=== PATIENT | female | born 1975 | race Caucasian/White ===

== ENCOUNTER 2017-12-08 19:28 | Emergency (ER) | payer BC ==
[~2017-12-08] VITALS: Ht 165.1 cm; Wt 56.7 kg
[2017-12-08 20:34] LABS: HEMATOCRIT 43 % (33-45); HEMOGLOBIN 14.2 g/dL (11.5-14.8); MEAN CORPUSCULAR HEMOGLOBIN 31 PG (26.0-33.0); MEAN CORPUSCULAR HGB CONC 33 g/dl (31.0-36.0); MEAN CORPUSCULAR VOLUME 94 fL (82-100); PLATELET COUNT (AUTO) 298 /CMM (150-450); RDW COEFFICIENT OF VARIATION 12.5 (11.5-15.0); RED BLOOD CELL COUNT(AUTO) 4.56 MIL/uL (4.0-5.2); WHITE BLOOD COUNT (AUTO) 6.5 K/uL (4.3-11.0)
[2017-12-08 20:48] LABS: CALCIUM, SERUM 9.9 mg/dL (8.5-10.1); CARBON DIOXIDE 26 mmol/L (21-32); CHLORIDE 104 mmol/L (98-107); GLUCOSE 115 mg/dL (74-106); POTASSIUM 3.5 mmol/L (3.5-5.1); SODIUM SERUM 138 mmol/L (136-145); UREA NITROGEN, BLOOD 11 mg/dL (7-18)
[2017-12-08 20:53] LABS: ALANINE AMINOTRANSFERASE 50 U/L (12-78); ALBUMIN 4.2 g/dL (3.4-5.0); ALCOHOL, BLOOD 226 mg/dL (0-0); ALKALINE PHOSPHATASE 99 U/L (46-116); ASPARTATE AMINOTRANSFERASE 22 U/L (15-37); BILIRUBIN,TOTAL 0.1 mg/dL (0.2-1.0); TOTAL PROTEIN, SERUM 7.9 g/dL (6.4-8.2)
[2017-12-08 20:54] LABS: SALICYLATE 1.7 mg/dL (2.8-20.0)
[2017-12-08 20:55] LABS: ACETAMINOPHEN < 2 ug/ml (10-30)
[2017-12-08] MEDS ORDERED: IBUPROFEN 600 MG TABLET PO ONE ×2 (21:30→21:49)
[2017-12-08 21:43] LABS: BAND % (MANUAL) 18 % (0.0-5.0); LYMPHOCYTES % (MANUAL) 15 % (16-48); MONOCYTES % (MANUAL) 7 % (0-11.0); NEUTROPHILS % (MANUAL) 60 (42-76)
[2017-12-08] MEDS ORDERED: ONDANSETRON 4 MG TAB.RAPDIS ONE (21:49)
[2017-12-08] MEDS ORDERED: ONDANSETRON 4 MG TAB.RAPDIS PO ONE (22:00)
[2017-12-08 22:25] LABS: APPEARANCE,URINE CLOUDY (CLEAR); BILIRUBIN,URINE NEGATIVE (NEGATIVE); BLOOD, URINE 3+ Ery/uL (NEGATIVE); COLOR,URINE RED (YELLOW); KETONES,URINE NEGATIVE (NEGATIVE); LEUKOCYTE ESTERASE ,URINE 1+ (NEGATIVE); NITRITE, URINE NEGATIVE (NEGATIVE); PROTEIN,URINE 1+ mg/dl (NEGATIVE); UGLUCOSE NEGATIVE (NEGATIVE); UROBILINOGEN,URINE 0.2 EU/dL (0.2)
[2017-12-08 22:36] LABS: BACTERIA,URINE None seen /HPF (None Seen); RBC,URINE TOO NUMEROUS TO COUN /HPF (0-2); SQUAMOUS EPITHELIAL CELL,UR Few /HPF (None Seen)
[2017-12-08 22:37] LABS: HYALINE CASTS, URINE Few /LPF (None Seen)
[2017-12-08] MEDS ORDERED: HALOPERIDOL LACTATE INJ 5 MG/ML VIAL ONE (22:37)
[2017-12-08] MEDS ORDERED: HALOPERIDOL LACTATE INJ 5 MG/ML VIAL IM ONE (23:00)
--- NOTE | 2017-12-08 23:45 | NUR ---
[facility] RO[address] FREIGHT CONDUCTOR AT BEDSIDE FOR EVAL .
[2017-12-09] MEDS ORDERED: CEPHALEXIN MONOHYDRATE 500 MG CAPSULE PO ONE ×2 (01:30→05:15)
--- NOTE | 2017-12-09 05:23 | NUR ---
PT OK TO DISCHARGE PER DR HARTMAN. Patient discharged to home in stable condition. Written and verbal after care instructions given. Patient verbalizes understanding of instruction.Patient is awake and alert to self, day, and place. PT ambulatory with a steady gait
[2017-12-09 05:25] VITALS: BP 120/79
== END 2017-12-09 05:25 | disposition home or self-care (01) ==
LOC: ER 19:30
DX: F10.129 Alcohol abuse with intoxication, unspecified (principal); R45.851 Suicidal ideations; M32.9 Systemic lupus erythematosus, unspecified; Z88.8 Allergy status to other drugs, medicaments and biological substances; Y90.7 Blood alcohol level of 200-239 mg/100 ml
CPT/HCPCS: 36415; 80048; 80076; 80305; 80329; 81001; 84703; 85025; 87086; 96372; 99284; A4606; G0480 ×2; J1630; Q0162; Z7610; 81000-TC

== ENCOUNTER 2021-03-30 09:30 | Emergency (ER) | payer BC, MEDICAID ==
[~2021-03-30] VITALS: Ht 162.6 cm; Wt 63.5 kg
[2021-03-30 09:43] VITALS: BP 149/95
--- NOTE | 2021-03-30 09:53 | NUR ---
SEEN AND EXMAINED BY .
[2021-03-30] MEDS ORDERED: GABA100C PO (09:56)
--- NOTE | 2021-03-30 10:09 | NUR ---
ER PHLEB AT BEDSIDE FOR BRUCE.
--- NOTE | 2021-03-30 10:15 | NUR ---
FIREARMS SPECIALIST AT BEDSIDE FOR XRAY.
--- NOTE | 2021-03-30 10:17 | NUR ---
Patient discharged to home in stable condition. Written and verbal after care instructions given. Patient verbalizes understanding of instruction.
[2021-03-30 10:24] LABS: BASOPHILS # (AUTO) 0.1 K/uL (0.0-0.2); BASOPHILS % (AUTO) 1.3 % (0.0-2.0); EOSINOPHILS % (AUTO) 1.3 % (0.0-6.0); HEMATOCRIT 35 % (33-45); HEMOGLOBIN 11.1 g/dL (11.5-14.8); LYMPHOCYTES # (AUTO) 1.8 K/uL (0.8-4.8); MEAN CORPUSCULAR HGB CONC 32 g/dl (31.0-36.0); MEAN CORPUSCULAR VOLUME 81 fL (82-100); MONOCYTES # (AUTO) 0.3 K/uL (0.1-1.30); MONOCYTES % (AUTO) 4.3 % (2.0-12.0); NEUTROPHILS # (AUTO) 5.4 K/uL (1.8-8.9); NEUTROPHILS % (AUTO) 70.1 % (43.0-81.0); PLATELET COUNT (AUTO) 325 K/uL (150-450); RED BLOOD CELL COUNT(AUTO) 4.26 MIL/uL (4.0-5.2); WHITE BLOOD COUNT (AUTO) 7.8 K/uL (4.3-11.0)
[2021-03-30 10:36] LABS: CALCIUM, SERUM 9.2 mg/dL (8.5-10.1); CARBON DIOXIDE 23 mmol/L (21-32); CHLORIDE 103 mmol/L (98-107); CREATININE 0.8 mg/dL (0.6-1.3); GLUCOSE 104 mg/dL (74-106); POTASSIUM 4.3 mmol/L (3.5-5.1); SODIUM SERUM 136 mmol/L (136-145); UREA NITROGEN, BLOOD 12 mg/dL (7-18)
[2021-03-30 10:40] LABS: CREATINE KINASE, TOTAL 111 U/L (26-192)
[2021-03-30 10:46] LABS: ALANINE AMINOTRANSFERASE 20 U/L (12-78); ALBUMIN 4.1 g/dL (3.4-5.0); ALKALINE PHOSPHATASE 92 U/L (46-116); ASPARTATE AMINOTRANSFERASE 15 U/L (15-37); BILIRUBIN,TOTAL 0.2 mg/dL (0.2-1.0); TOTAL PROTEIN, SERUM 7.7 g/dL (6.4-8.2)
[2021-03-30 10:47] LABS: C-REACTIVE PROTEIN < 0.2 mg/dL (0.0-0.9)
[2021-03-31 06:06] LABS: *ANA ANTI-CENTROMERE B AB <0.2 AI (0.0-0.9); *ANA ANTI-DNA(DS) AB, QN 1 IU/mL (0-9); *ANA ANTI-JO-1 <0.2 AI (0.0-0.9); *ANA ANTICHROMATIN ANTIBODY <0.2 AI (0.0-0.9); *ANA RNP ANTIBODIES 0.2 AI (0.0-0.9); *ANA SJOGREN'S ANTI-SS-A <0.2 AI (0.0-0.9); *ANA SJOGREN'S ANTI-SS-B <0.2 AI (0.0-0.9); *ANAANTI-SCLERODERMA-70 AB <0.2 AI (0.0-0.9); *ANASMITH AB <0.2 AI (0.0-0.9)
[2021-03-31 08:07] LABS: COMPLEMENT C3, SERUM 116 mg/dL (82-167); COMPLEMENT C4, SERUM 21 mg/dL (12-38)
== END 2021-03-30 10:19 | disposition home or self-care (01) ==
LOC: ER 09:40
DX: G62.9 Polyneuropathy, unspecified (principal); M79.7 Fibromyalgia; M32.9 Systemic lupus erythematosus, unspecified; Z88.8 Allergy status to other drugs, medicaments and biological substances; Z79.899 Other long term (current) drug therapy
CPT/HCPCS: 36415; 73564-TC; 80053-TC; 82550-TC; 85025-TC; 85652-TC; 86140-TC; 86225; 86235

== ENCOUNTER 2021-09-18 12:14 | Inpatient (IN) | payer MEDICAID ==
[~2021-09-18] VITALS: Ht 162.6 cm; Wt 68.5 kg
[~2021-09-18 12:14] MED LIST: GABA100C PO
--- NOTE | 2021-09-18 12:24 | NUR ---
TO ER BED 11, BIBSELF C/O NUMBNESS ON LT ARM & MORIS LOWER LEGS X 5 DAYS WITH INTERMITTENT PAIN PER PT. DENIES NECK/BACK PAIN, AAOX3, BREATHING EVEN AND NON LABORED, AWAITING MD CABRERA
--- NOTE | 2021-09-18 12:29 | NUR ---
DR MONTERO AT BEDSIDE FOR EVAL
--- NOTE | 2021-09-18 12:59 | NUR ---
COVID SWAB DONE AND SENT TO LAB
--- NOTE | 2021-09-18 13:00 | NUR ---
MOVE SHEET SUBMITTED.
--- NOTE | 2021-09-18 13:08 | NUR ---
MASTER TECHNICIAN AT BEDSIDE FOR BLOOD DRAW
--- NOTE | 2021-09-18 13:26 | NUR ---
CALLED HOUSE SUPV FOR MIDLINE NURSE
[2021-09-18 13:29] LABS: BASOPHILS # (AUTO) 0.1 K/uL (0.0-0.2); EOSINOPHILS % (AUTO) 0.2 % (0.0-6.0); HEMATOCRIT 35 % (33-45); LYMPHOCYTES # (AUTO) 1.9 K/uL (0.8-4.8); LYMPHOCYTES % (AUTO) 18.5 % (20.0-44.0); MEAN CORPUSCULAR HGB CONC 32 g/dl (31.0-36.0); MEAN CORPUSCULAR VOLUME 75 fL (82-100); MONOCYTES # (AUTO) 0.3 K/uL (0.1-1.30); NEUTROPHILS % (AUTO) 77.3 % (43.0-81.0); PLATELET COUNT (AUTO) 330 K/uL (150-450); RED BLOOD CELL COUNT(AUTO) 4.66 MIL/uL (4.0-5.2); WHITE BLOOD COUNT (AUTO) 10.4 K/uL (4.3-11.0)
--- NOTE | 2021-09-18 13:42 | NUR ---
URINE COLLECTED AND SENT TO LAB
[2021-09-18 13:45] LABS: CALCIUM, SERUM 9.1 mg/dL (8.5-10.1); CREATININE 0.7 mg/dL (0.6-1.3); POTASSIUM 4.3 mmol/L (3.5-5.1)
[2021-09-18] MEDS ORDERED: LAMO200T10 PO (13:50)
[2021-09-18] MEDS ORDERED: SUMA100T PO (13:50)
[2021-09-18] MEDS ORDERED: PARO30TA4 PO (13:50)
[2021-09-18] MEDS ORDERED: METH4TAB16 PO (13:50)
[2021-09-18] MEDS ORDERED: GABA300C PO (13:50)
[2021-09-18 13:51] LABS: BILIRUBIN,DIRECT 0.1 mg/dL (0.0-0.2); BILIRUBIN,TOTAL 0.4 mg/dL (0.2-1.0); TOTAL PROTEIN, SERUM 7.8 g/dL (6.4-8.2)
[2021-09-18 14:01] LABS: BILIRUBIN,URINE NEGATIVE (NEGATIVE); LEUKOCYTE ESTERASE ,URINE NEGATIVE (NEGATIVE); NITRITE, URINE NEGATIVE (NEGATIVE); PH,URINE 6.5 (5.0-8.0); PROTEIN,URINE NEGATIVE (NEGATIVE); UGLUCOSE NEGATIVE (NEGATIVE); UROBILINOGEN,URINE 0.2 EU/dL (0.2)
[2021-09-18 14:03] LABS: COLOR,URINE STRAW (YELLOW)
--- NOTE | 2021-09-18 14:11 | NUR ---
MIDLINE NURSE AT BEDSIDE
[2021-09-18 15:07] LABS: BACTERIA,URINE 1+ /HPF (None Seen); RBC,URINE 0-2 /HPF (0-2); SQUAMOUS EPITHELIAL CELL,UR Few /HPF (None Seen); WBC,URINE 0-2 /HPF (0-3)
[2021-09-18] MEDS ORDERED: ACETAMINOPHEN 325 MG TABLET ONE (15:42)
--- NOTE | 2021-09-18 15:56 | NUR ---
[facility] CALLED UTILITY BILL COLLECTION CLERK PAGED.
[2021-09-18] MEDS ORDERED: ACETAMINOPHEN 325 MG TABLET PO ONE (16:00)
--- NOTE | 2021-09-18 17:09 | NUR ---
GOT BED 313-1
--- NOTE | 2021-09-18 17:18 | NUR ---
REPORT GIVEN TO MARYLU FRAUSTO FOR LELA
--- NOTE | 2021-09-18 17:35 | NUR ---
TRANSFERRED TO BED 313 IN STABLE CONDITION
[2021-09-18] MEDS ORDERED: MAGNESIUM HYDROXIDE 30 ML UDC PO PRN (18:00)
[2021-09-18] MEDS ORDERED: ACETAMINOPHEN 325 MG TABLET PO PRN (18:00)
[2021-09-18] MEDS ORDERED: MAG HYDROX/AL HYDROX/SIMETH 30 ML UDC PO PRN (18:00)
[2021-09-18] MEDS ORDERED: Z GUARD REMEDY 4 OZ OINT TP PRN (18:00)
[2021-09-18] MEDS ORDERED: ONDANSETRON HCL/PF 4 MG/2 ML VIAL IVP PRN (18:00)
--- NOTE | 2021-09-18 18:00 | NUR ---
ms rn received a new admission from er, awake,alert,oriented x4,not in any form of distress, respirations even and unlabored,no sob noted, lungs are clear,abdomen soft,positive bowel sounds,denies pain at this time, patient came in w/ cc of left arm numbness and tingling of bilateral legs, all needs attended.
[2021-09-18] MEDS: MORPHINE SULFATE INJ 2 MG/ML DISP.SYRIN IV PRN ×2 (18:48→23:07)
--- NOTE | 2021-09-18 18:55 | NUR ---
ms rn gave iv2mg morphine given for arm pain 11/25, will reevaluate for effectiveness of meds.
--- NOTE | 2021-09-18 20:00 | NUR ---
rn opening notes received pt in bed aaox4 on room air tripp well no sign sob/distress noted.breathing even and unlabored.iv access leah midline intact and patent.pt remained stable at this time.call light within reach.safety measure in place.will continue to monitor
[2021-09-18 20:45] VITALS: BP 128/78
--- NOTE | 2021-09-18 23:31 | NUR ---
RN NOTES PT COMPLAINED OF GEN BODY PAIN 12/26.PRN MEDS MORPHINE 2MG WAS GIVEN.NO A/R NOTED.EFFECTIVE
[2021-09-19 00:51] VITALS: BP 128/78
[2021-09-19] MEDS: MORPHINE SULFATE INJ 2 MG/ML DISP.SYRIN IV PRN ×5 (03:24→22:54)
--- NOTE | 2021-09-19 03:29 | NUR ---
RN NOTES PT COMPLAINED OF GEN BODY PAIN 12/26.PRN MEDS MORPHINE 2MG WAS GIVEN.NO A/R NOTED.EFFECTIVE
[2021-09-19 06:21] LABS: BASOPHILS # (AUTO) 0.1 K/uL (0.0-0.2); BASOPHILS % (AUTO) 1.3 % (0.0-2.0); EOSINOPHILS % (AUTO) 1.7 % (0.0-6.0); HEMATOCRIT 34 % (33-45); HEMOGLOBIN 10.6 g/dL (11.5-14.8); LYMPHOCYTES # (AUTO) 2.5 K/uL (0.8-4.8); LYMPHOCYTES % (AUTO) 37.9 % (20.0-44.0); MEAN CORPUSCULAR HGB CONC 32 g/dl (31.0-36.0); MEAN CORPUSCULAR VOLUME 75 fL (82-100); MONOCYTES # (AUTO) 0.4 K/uL (0.1-1.30); MONOCYTES % (AUTO) 6.1 % (2.0-12.0); NEUTROPHILS # (AUTO) 3.5 K/uL (1.8-8.9); PLATELET COUNT (AUTO) 303 K/uL (150-450); RED BLOOD CELL COUNT(AUTO) 4.47 MIL/uL (4.0-5.2); WHITE BLOOD COUNT (AUTO) 6.6 K/uL (4.3-11.0)
--- NOTE | 2021-09-19 06:38 | NUR ---
rn closing notes pt in bed sleeping but easy to aroused,aox4 on room air tripp well no sign sob/distress noted.breathing even and unlabored.iv access leah midline intact and patent.pt remained stable at this time.call light within reach.safety measure in place.will endorsed to next shift
[2021-09-19 06:55] LABS: CALCIUM, SERUM 8.7 mg/dL (8.5-10.1); CREATININE 0.9 mg/dL (0.6-1.3); PHOSPHORUS 4.9 mg/dL (2.5-4.9); POTASSIUM 3.7 mmol/L (3.5-5.1)
--- NOTE | 2021-09-19 07:23 | NUR ---
MS RN OPENING NOTES: RECEIVED PATIENT SLEEPING, EASILY AROUSED WITH STIMULI. NO SOB OR CARDIAC DISTRESS NOTED,ON ROOM AIR AND TOLERATING WELL. NOTED WITH BERT MIDLINE G#18 SALINE LOCKED. DENIES ANY PAIN AT THIS TIME AND WILL MONITOR FOR ANY SIGNIFICANT CHANGES. SAFETY PRECAUTIONS MAINTAINED: BED IN LOWEST POSITION, LOCKED. SIDE RAILS UP X 2. CALL LIGHT WITHIN REACH FOR HELP/ASSISTANCE.
[2021-09-19 07:46] LABS: THYROID STIMULATING HORMONE 6.378 uIU/mL (0.358-3.74)
[2021-09-19 08:00] VITALS: BP 141/88
[2021-09-19] MEDS: GABAPENTIN 300 MG CAPSULE PO SCH ×2 (10:44→16:29)
[2021-09-19] MEDS ORDERED: SUMATRIPTAN SUCCINATE 100 MG TABLET PO PRN (11:00)
[2021-09-19] MEDS: diphenhydrAMINE HCL 50 MG/ML VIAL IV PRN ×2 (11:37→18:49)
--- NOTE | 2021-09-19 11:40 | NUR ---
RN NOTES: PATIENT COMPLAINED GENERAL ITCHING, DR REYES MADE AWARE WITH ORDER BENADRYL 25MG/ML IV Q6HRS PRN.
--- NOTE | 2021-09-19 11:54 | NUR ---
RN NOTES: CT OF THE HEAD WITHOUT CONTRAST DONE VIA WHEELCHAIR.
--- NOTE | 2021-09-19 13:29 | NUR ---
RN NOTES PT VERBALIZED THAT SHE'S NOT VACCINATED WITH COVID VACCINE.
[2021-09-19 16:00] VITALS: BP 118/82
--- NOTE | 2021-09-19 19:07 | NUR ---
MS RN CLOSING NOTES: PATIENTIN BED AWAKE AND ABLE TO VERBALIZED NEEDS, A/O X3 WITH EPISODES OF FORGETFULNESS. NO SOB OR CARDIAC DISTRESS NOTED,ON ROOM AIR AND TOLERATING WELL. NOTED WITH BERT SABI G#18 SALINE LOCKED. DENIES ANY PAIN AT THIS TIME AND WILL MONITOR FOR ANY SIGNIFICANT CHANGES. SAFETY PRECAUTIONS MAINTAINED: BED IN LOWEST POSITION, LOCKED. SIDE RAILS UP X 2. CALL LIGHT WITHIN REACH FOR HELP/ASSISTANCE. ENDORSED TO CLAY PIGEON LOADER NURSE FOR LELA. Addendum: 09/19/21 at 1909 by RANDY GRAY RN ERROR.[email or web address] CHARTING
--- NOTE | 2021-09-19 19:10 | NUR ---
MS RN CLOSING NOTES: PATIENT AWAKE IN BED,A/O X4 ABLE TO VERBALIZED NEEDS. . NO SOB OR CARDIAC DISTRESS NOTED,ON ROOM AIR AND TOLERATING WELL. NOTED WITH BERT MIDLINE G#18 SALINE LOCKED. PAIN MANAGEMENT ORDERED AND WILL MONITOR FOR ANY SIGNIFICANT CHANGES. SAFETY PRECAUTIONS MAINTAINED: BED IN LOWEST POSITION, LOCKED. SIDE RAILS UP X 2. CALL LIGHT WITHIN REACH FOR HELP/ASSISTANCE. ENDORSED TO NEXT SHIFT FOR LELA
--- NOTE | 2021-09-19 19:44 | NUR ---
MS RN OPENING NOTE PATIENT AWAKE IN BED, ALERT/ORIENTED X 4, PATIENT ABLE TO MAKE NEEDS KNOWN. PATIENT REPORTING SHE'S STILL IN PAIN EVEN AFTER DOSE OF MORPHINE, STATES "IT'S NOT WORKING ANYMORE," PATIENT HAS ORDER FOR NORCO 5-325 MG WELL, WILL GIVE 1 HOUR AFTER MORPHINE WAS GIVEN. PATIENT STABLE ON RA, NO S/S OF DISTRESS OR SOB NOTED, BREATHING EVEN AND UNLABORED. SOCRATES MIDLINE #18G INTACT AND SALINE LOCKED. SAFETY MEASURES IN PLACE: CALL LIGHT WITHIN REACH, SIDE RAILS UP X 2, BED LOCKED IN LOWEST POSITION, TABLE WITHIN REACH. WILL CONTINUE TO MONITOR PATIENT
[2021-09-19] MEDS: HYDROCODONE/APAP 5/325MG TABLET PO PRN (19:57)
[2021-09-19 20:00] VITALS: BP 132/81
[2021-09-20] MEDS: diphenhydrAMINE HCL 50 MG/ML VIAL IV PRN ×4 (01:02→20:52)
[2021-09-20] MEDS: HYDROCODONE/APAP 5/325MG TABLET PO PRN ×4 (01:51→20:12)
[2021-09-20] MEDS: MORPHINE SULFATE INJ 2 MG/ML DISP.SYRIN IV PRN ×4 (06:15→23:18)
--- NOTE | 2021-09-20 07:44 | NUR ---
RN OPENING NOTES Patient seen comfortably lying in bed, no apparent distress noted, respirations even and unlabored, no shortness of breath, no grimacing, denies any pain or discomfort at this time. Call light left within reach, safety precautions in place, brakes locked, side rails up X 2.
[2021-09-20] MEDS: LamoTRIgine 100 MG TABLET PO SCH (08:03)
[2021-09-20] MEDS: PAROXETINE HCL 10 MG TABLET PO SCH (08:04)
[2021-09-20] MEDS: GABAPENTIN 300 MG CAPSULE PO SCH ×2 (08:05→17:58)
[2021-09-20 08:09] VITALS: BP_SYST 109; BP_SYST 125; BP_DIAS 51; BP_DIAS 74
--- NOTE | 2021-09-20 08:35 | NUR ---
Received a telephone order from Dr. Hatfield (neurologist), order: STAT MRI of cervical spine without contrast and STAT MRI of lumbar spine without contrast, orders read back and verified with MD. Patient made aware of the situation and verbalized understanding and gratitude. MRI questionnaire and checklist done and filed in patient's chart.
[2021-09-20] MEDS ORDERED: SUMATRIPTAN SUCCINATE 100 MG TABLET PO PRN (09:00)
[2021-09-20] MEDS: LORAZEPAM INJ 2 MG/ML VIAL IV PRN (14:44)
[2021-09-20 16:05] VITALS: BP 130/71
--- NOTE | 2021-09-20 18:32 | NUR ---
RN CLOSING NOTES Patient lying in bed, no apparent distress noted, respirations even and unlabored, no shortness of breath, remained afebrile. All due medications given per MD order, tolerated well. Pain medications given per MD order as needed when non pharmacological measures ineffective. Patient has midline on her left upper arm, patent, intact and flushing well, no redness, no swelling noted, no s/s of infiltration at this time. Skin warm to touch, no pallor or cyanosis noted. Call light left within reach, all needs anticipated, frequent visual check rendered, kept clean and dry, aspiration precautions rendered, safety precautions in place, brakes locked, side rails up X 2.
--- NOTE | 2021-09-20 19:39 | NUR ---
MS RN OPENING NOTES RECEIVED PT LYING IN BED AWAKE. A/O X4. ABLE TO VERBALIZE NEEDS. BREATHING EVEN AND NON-LABORED IN ROOM AIR. C/O LEFT ARM, HIP AND LEG PAIN 10/25. HAS LEFT UPPER ARM MIDLINE #18G AND SALINE LOCKED. NO S/SO OF INFILTRATION NOTED. SAFETY MEASURES IN PLACE. WILL CONTINUE PLAN OF CARE.
[2021-09-20 20:08] VITALS: BP 133/77
--- NOTE | 2021-09-20 20:15 | NUR ---
MS RN NOTES PT C/O LEFT ARM, HIP AND LEG PAIN 10/25. VS WNL. ADMINISTERED PRN NORCO 5-325. TOLERATED WELL.
--- NOTE | 2021-09-20 21:00 | NUR ---
MS RN NOTES PT C/O ITCHINESS AND REDNESS ON HER BILATERAL HANDS/FINGERS AND FEET. VERBALIZED THIS IS BECAUSE OF HER LUPUS. SKIN CHECK DONE. NO SIGNS OF ALOC OR RESPIRATORY DEPRESSION. ADMINISTERED PRN BENADRYL 25 MG. TOLERATED WELL.
--- NOTE | 2021-09-20 23:20 | NUR ---
MS RN NOTES PT C/O THE SAME LEFT SIDE PAIN 11/25. VERBALIZED THE EFFECT OF PAIN MEDS DOESN'T LAST LONG. ADMINISTERED PRN MORPHINE 2 MG. TOLERATED WELL.
[2021-09-21] MEDS: HYDROCODONE/APAP 5/325MG TABLET PO PRN ×2 (01:47→10:53)
--- NOTE | 2021-09-21 02:00 | NUR ---
MS RN NOTES PT C/O LEFT SIDE PAIN 10/25, NO RESPIRATORY OR NEUROLOGICAL DEPRESSION NOTED. PRN NORCO GIVEN. PT REQUESTING FOR HER BENADRYL AND A HIGHER DOSE. ADVISED THAT IT IS NOT DUE YET AND PER NEUROLOGIST RECOMMENDATION, LIMIT SEDATING MEDS. PT VERBALIZED UNDERSTANDING.
--- NOTE | 2021-09-21 06:33 | NUR ---
MS RN CLOSING NOTES PT LYING IN BED ASLEEP. EASY TO AROUSE. A/O X4. NO C/O OF PAIN OR DISCOMFORT AT THIS TIME. AFEBRILE. NO SOB OR NOTED. TOLERATING ROOM AIR WELL. NOT IN APPARENT DISTRESS. HAS LEFT UPPER ARM MIDLINE #18G AND SALINE LOCKED. INTACT, PATENT AND FLUSHING. ALL DUE MEDS GIVEN AND NEEDS ATTENDED. SAFETY MEASURES IN PLACE: BED LOW AND LOCKED, SIDE RAILS UP X2, CALL LIGHT WITHIN REACH.
--- NOTE | 2021-09-21 07:30 | NUR ---
MS RN OPENING NOTES RECEIVED PATIENT ON BED, AWAKE AND A/O X4. ON ROOM AIR TOLERATING WELL. NO SOB NOTED. NOT IN DISTRESS. WITH COMPLAINTS OF PAIN AT THE LEFT HIP AT THE SCALE OF 8/10. COMFORT MEASURES PROVIDED. WITH IV ACCESS AT THE LEFT UPPER ARM MIDLINE, SALINE LOCKED, PATENT AND INTACT. SAFETY MEASURES IN PLACED, CALL LIGHT WITHIN REACH. BED ON LOWEST LOCKED POSITION, SIDE RAILS UP X2. WILL CONTINUE TO MONITOR.
[2021-09-21] MEDS: MORPHINE SULFATE INJ 2 MG/ML DISP.SYRIN IV PRN ×2 (08:14→13:16)
--- NOTE | 2021-09-21 08:14 | NUR ---
RN NOTE PATIENT WAS COMPLAINING OF PAIN AT THE LEFT HIP AND ARM AT THE SCALE OF 8/10 AND ASKED FOR IV PAIN MEDICATION. MORPHINE 2MG IV WAS GIVEN FOR PAIN.
--- NOTE | 2021-09-21 08:26 | NUR ---
RN NOTE PATIENT HAS BEEN COMPLAINING OF NAUSEA AND ASKED FOR MEDS FOR NAUSEA. ZOFRAN IV WAS GIVEN. WILL CONTINUE TO MONITOR.
[2021-09-21 08:46] VITALS: BP 105/61
[2021-09-21] MEDS: GABAPENTIN 300 MG CAPSULE PO SCH ×2 (09:35→16:39)
[2021-09-21] MEDS: PAROXETINE HCL 10 MG TABLET PO SCH (09:35)
[2021-09-21] MEDS: LamoTRIgine 100 MG TABLET PO SCH (09:35)
--- NOTE | 2021-09-21 10:53 | NUR ---
RN NOTE PATIENT WAS COMPLAINING OF PAIN AT THE LEFT HIP AND ARM AT THE SCALE OF 7/10 AND ASKED FOR PAIN MEDICATION. NORCO 5-325MG WAS GIVEN FOR PAIN.
[2021-09-21 12:06] LABS: *SPE A/G RATIO 1.3 (0.7-1.7); *SPE ALPHA-1-GLOBULIN 0.2 g/dL (0.0-0.4); *SPE ALPHA-2-GLOBULIN 0.7 g/dL (0.4-1.0); *SPE M-SPIKE Not Observed g/dL (Not Observed)
[2021-09-21] MEDS: LORAZEPAM INJ 2 MG/ML VIAL IV PRN (13:44)
--- NOTE | 2021-09-21 13:44 | NUR ---
RN NOTE PATIENT IS FOR MRI OF THE LUMBAR SPINE WITHOUT CONTRAST AND ASKED FOR ANXIETY MEDS PRIOR THE PROCEDURE. ATIVAN 0.5MG WAS GIVEN PRN MEDS FOR ANXIETY.
--- NOTE | 2021-09-21 17:10 | NUR ---
PHOTOGRAPHIC TECHNICIAN NOTES PATIENT WAS SEEN BY DR. REYES AND ORDERED PATIENT FOR DISCHARGE TO HOME. DISCHARGE INSTRUCTION AND EDUCATION PROVIDED TO PATIENT AND EXPLAINED MEDICATIONS AND PRESCRIPTIONS. PATIENT VERBALIZED UNDERSTANDING. DISCHARGE FORM AND BELONGINGS LIST FORM SIGNED BY PATIENT. ALL BELONGINGS ACCOUNTED FOR. NAME WRIST BAND AND IV LINE REMOVED. PATIENT WAS ACCOMPANIED TO THE LOBBY VIA WHEELCHAIR IN STABLE CONDITION AND WAS PICKED UP BY VIA PRIVATE CAR. MD AND CHARGE NURSE ARE AWARE OF THE DISCHARGE.
--- NOTE | 2021-09-21 17:10 | NUR ---
RN NOTE PATIENT HAS BEEN PROVIDED WITH DISC CONTAINING HER RESULTS OF IMAGING TEST.
--- NOTE | 2021-09-22 08:43 | NUR ---
WOUND CARE CONSULT: RECEIVED CONSULT IN ERROR PER RN. WILL SEE PRN.
== END 2021-09-21 17:10 | disposition home or self-care (01) | DRG 48 ==
LOC: ER 12:34 → MED 17:19
PROVIDERS: ADMIT Internal Medicine; ATTEND Internal Medicine
PROC: 05HA33Z Insertion of Infusion Device into Left Brachial Vein, Percutaneous Approach (ICD-10-PCS; principal; 2021-09-18)
DX: G62.9 Polyneuropathy, unspecified (principal); F10.11 Alcohol abuse, in remission; F32.9 Major depressive disorder, single episode, unspecified; Z20.822 Contact with and (suspected) exposure to COVID-19; M79.7 Fibromyalgia; Z88.8 Allergy status to other drugs, medicaments and biological substances; Z79.899 Other long term (current) drug therapy; Z87.39 Personal history of other diseases of the musculoskeletal system and connective tissue; G43.909 Migraine, unspecified, not intractable, without status migrainosus; M54.12 Radiculopathy, cervical region; M54.16 Radiculopathy, lumbar region; Y90.0 Blood alcohol level of less than 20 mg/100 ml
CPT/HCPCS: 36415; 70450-TC; 72052-TC; 72100-TC; 72141-TC; 72148-TC; 80048-TC; 80076-TC; 81001; 82607-TC; 83735-TC; 84100-TC; 84155; 84165; 84443-TC; 84703-TC; 85025-TC; 85652-TC; 86140-TC; 87081-TC; 97116-TC; 97530-TC; C9803; G0378; G0480; J1200; J2060; J2270; J2405

== ENCOUNTER 2021-11-05 11:28 | Emergency (ER) | payer BC, OTHER ==
[~2021-11-05] VITALS: Ht 162.6 cm; Wt 68.0 kg
[~2021-11-05 11:28] MED LIST changes: -GABA100C PO; +GABA300C PO; +LAMO200T10 PO; +PARO30TA4 PO; +SUMA100T PO
--- NOTE | 2021-11-05 11:38 | NUR ---
CAME IN FOR RIGHT HAND PAIN/SWELLING SINCE THIS MORNING,NO TRAUMA. TO ER BED 11, HOOKED TO MONITOR, CHANGED TO HOSP GIWN,W ARM BLANKET PROVIDED. DR SOLIMAN AT BEDSIDE
--- NOTE | 2021-11-05 12:24 | NUR ---
EARLY HEAD START DIRECTOR AT BEDSIDE
[2021-11-05 12:40] LABS: BASOPHILS # (AUTO) 0.1 K/uL (0.0-0.2); BASOPHILS % (AUTO) 0.9 % (0.0-2.0); EOSINOPHILS % (AUTO) 0.1 % (0.0-6.0); HEMATOCRIT 31 % (33-45); LYMPHOCYTES # (AUTO) 1.4 K/uL (0.8-4.8); LYMPHOCYTES % (AUTO) 18.7 % (20.0-44.0); MEAN CORPUSCULAR HGB CONC 32 g/dl (31.0-36.0); MEAN CORPUSCULAR VOLUME 75 fL (82-100); MONOCYTES # (AUTO) 0.4 K/uL (0.1-1.30); MONOCYTES % (AUTO) 6.1 % (2.0-12.0); NEUTROPHILS # (AUTO) 5.4 K/uL (1.8-8.9); NEUTROPHILS % (AUTO) 74.2 % (43.0-81.0); PLATELET COUNT (AUTO) 288 K/uL (150-450); RED BLOOD CELL COUNT(AUTO) 4.16 MIL/uL (4.0-5.2); WHITE BLOOD COUNT (AUTO) 7.2 K/uL (4.3-11.0)
[2021-11-05 12:50] LABS: CALCIUM, SERUM 8.6 mg/dL (8.5-10.1); CREATININE 0.6 mg/dL (0.6-1.3); POTASSIUM 3.6 mmol/L (3.5-5.1)
[2021-11-05] MEDS ORDERED: IBUP-1955 PO (13:41)
[2021-11-05] MEDS ORDERED: SUMA50TA PO (13:43)
--- NOTE | 2021-11-05 13:52 | NUR ---
Patient discharged to home in stable condition. Written and verbal after care instructions given. Patient verbalizes understanding of instruction.
[2021-11-05] MEDS ORDERED: IBUPROFEN 600 MG TABLET ONE (13:54)
[2021-11-05] MEDS ORDERED: SUMATRIPTAN SUCCINATE 25 MG TABLET ONE (13:55)
--- NOTE | 2021-11-05 13:56 | NUR ---
SIGNED WAIVER FORM. LMP 3WEEKS AGO , TUBES TIED. GAVE IMITREX 50MG PO AFTER.
[2021-11-05] MEDS: IBUPROFEN 600 MG TABLET PO ONE (13:59)
[2021-11-05] MEDS: SUMATRIPTAN SUCCINATE 25 MG TABLET PO ONE (13:59)
[2021-11-05 14:00] VITALS: BP 132/88
== END 2021-11-05 14:00 | disposition home or self-care (01) ==
LOC: ER 11:40
DX: M79.601 Pain in right arm (principal); G62.9 Polyneuropathy, unspecified; G43.909 Migraine, unspecified, not intractable, without status migrainosus; Z60.2 Problems related to living alone; Z79.899 Other long term (current) drug therapy
CPT/HCPCS: 36415; 80048-TC; 85025-TC; 93971-TC